=== PATIENT | female | born 1950 | race Two or more races ===

== ENCOUNTER → 2017-12-06 | Emergency (ER) | payer OTHER ==
[~2017-12-06] VITALS: Ht 157.5 cm; Wt 63.5 kg
[~2017-12-06] MED LIST: BENTYL10 MG/ML IM; LASIX20 MG; VASOTEC20 MG PO; ZANTAC300 MG PO
== END | disposition home or self-care (01) ==
LOC: ER 11:46
DX: I10 Essential (primary) hypertension (principal)

== ENCOUNTER 2018-08-11 21:17 | Emergency (ER) | payer OTHER ==
[~2018-08-11] VITALS: Ht 165.1 cm; Wt 68.0 kg
[2018-08-12] MEDS ORDERED: TESSALON PERLE100 M1 PO (06:39)
[2018-08-12] MEDS ORDERED: OSEL75CA PO (06:39)
[2018-08-12] MEDS ORDERED: AIRBORNE EFFER1 EACH PO (06:39)
[2018-08-12] MEDS ORDERED: ZOFRAN ODT4 MG SL (06:39)
== END 2018-08-12 08:04 | disposition home or self-care (01) ==
LOC: ER 21:17
DX: J09.X2 Influenza due to identified novel influenza A virus with other respiratory manifestations (principal); R55 Syncope and collapse

== ENCOUNTER 2019-12-16 11:44 | Emergency (ER) | payer OTHER ==
[~2019-12-16] VITALS: Ht 157.5 cm; Wt 61.7 kg
[~2019-12-16 11:44] MED LIST changes: +AIRBORNE EFFER1 EACH PO; +OSEL75CA PO; +TESSALON PERLE100 M1 PO; +ZOFRAN ODT4 MG SL
== END 2019-12-16 13:54 | disposition home or self-care (01) ==
LOC: ER 11:44
DX: M62.838 Other muscle spasm (principal); M54.2 Cervicalgia

== ENCOUNTER → 2020-09-06 15:00 | Outpatient (CLI) | payer OTHER | END | disposition home or self-care (01) | LOC: PPH VACUNA 15:00 | PROVIDERS: ATTEND Emergency Medicine Pediatric Emergency Medicine | DX: Z23 Encounter for immunization (principal) ==

== ENCOUNTER → 2020-09-28 | Outpatient (CLI) | payer OTHER | END | disposition home or self-care (01) | LOC: PPH VACUNA | PROVIDERS: ATTEND Emergency Medicine Pediatric Emergency Medicine | DX: Z23 Encounter for immunization (principal) ==

== ENCOUNTER 2021-09-12 02:00 | Outpatient (CLI) | payer OTHER | END 2021-09-12 02:30 | disposition home or self-care (01) | LOC: PPH VACUNA 02:00 | PROVIDERS: ATTEND Emergency Medicine Pediatric Emergency Medicine | DX: Z23 Encounter for immunization (principal) ==

== ENCOUNTER 2024-08-19 17:14 | Emergency (ER) | payer OTHER ==
[~2024-08-19] VITALS: Ht 152.4 cm; Wt 58.1 kg
[2024-08-19] MEDS ORDERED: CHILDREN'S ASPI81 MG (17:33)
[2024-08-19] MEDS ORDERED: COZAAR25 MG PO (17:33)
[2024-08-19 17:34] VITALS: BP 121/72; O2SAT 99
[2024-08-19] MEDS ORDERED: TOPROL XL25 M1 (17:34)
[2024-08-19] MEDS ORDERED: 0.9 % SODIUM CHLORIDE 500 ML IV ONE (18:30)
[2024-08-19 18:56] LABS: HEMATOCRIT 41.2 % (36.0-45.00); HEMOGLOBIN 13.7 g/dL (12.0-15.00); MEAN CELL VOLUME 86.7 fL (80.00-100.00); MEAN CORPUSCULAR HEMOGLOBIN 28.9 pg (27.00-32.0); MEAN CORPUSCULAR HGB CONC 33.3 g/dl (32.0-36.0); RED BLOOD COUNT 4.76 M/uL (4.00-6.00)
[2024-08-19 19:29] LABS: ALBUMIN 3.7 gm/dL (3.4-5.0); BILIRUBIN TOTAL 0.57 mg/dL (0.3-1.2); CALCIUM 8.9 mg/dL (8.5-10.1); CREATININE SERUM 1.45 mg/dL (0.55-1.02); GFR 35.5; GLOBULINA 3.9 G/DL (2.4-3.5); POTASSIUM 3.7 mEq/L (3.5-5.1); TOTAL PROTEIN 7.6 gm/dL (6.4-8.2)
[2024-08-19 19:32] LABS: PLATELET COUNT 116 K/uL (150-450)
[2024-08-19] MEDS ORDERED: OSELTAMIVIR PHOSPHATE 75 MG CAPSULE PO ONE (20:30)
[2024-08-19] MEDS ORDERED: TUSSIN DM LIQU118 ML PO (22:11)
[2024-08-19] MEDS ORDERED: OSEL75CA PO (22:11)
== END 2024-08-20 00:08 ==
LOC: ER 17:16
PROVIDERS: Preventive Medicine Public Health & General Preventive Medicine
DX: R53.81 Other malaise (principal); J10.1 Influenza due to other identified influenza virus with other respiratory manifestations; R06.02 Shortness of breath; Z20.822 Contact with and (suspected) exposure to COVID-19; I10 Essential (primary) hypertension
CPT/HCPCS: 36415; 71046; 76700; 96365; 96366; 99284; J7042

== ENCOUNTER → 2024-11-02 | Outpatient (CLI) | payer OTHER ==
[~2024-11-02] MED LIST changes: +CHILDREN'S ASPI81 MG; +COZAAR25 MG PO; +TOPROL XL25 M1; +TUSSIN DM LIQU118 ML PO
== END | disposition home or self-care (01) ==
LOC: NUCLEAR 07:32
PROVIDERS: ATTEND Internal Medicine
DX: I20.9 Angina pectoris, unspecified (principal)
CPT/HCPCS: 78452; 93017; A9500; J0153